=== PATIENT | female | born 1955 | race Asian ===

== ENCOUNTER 2024-07-29 11:55 | Emergency (ER) | payer OTHER ==
[~2024-07-29] VITALS: Ht 152.4 cm; Wt 83.9 kg
[2024-07-29] MEDS ORDERED: HUMULIN N100 UNIT/2 (12:08)
[2024-07-29] MEDS ORDERED: GLIPIZIDE XL2.5 MG (12:09)
[2024-07-29] MEDS ORDERED: LASIX20 MG (12:09)
[2024-07-29] MEDS ORDERED: NIFEDIPINE ER30 M1 (12:10)
[2024-07-29] MEDS ORDERED: ZESTRIL20 MG (12:10)
[2024-07-29] MEDS ORDERED: 0.9 % SODIUM CHLORIDE 1,000 ML IV ONE (12:45)
[2024-07-29] MEDS ORDERED: INSULIN REGULAR, HUMAN 1,000 UNIT/10 ML UNITS IV ONE ×2 (12:45→14:45)
[2024-07-29 12:56] LABS: BASO % 0.3 % (0.1-1.2); EOS # 0.01 (0.04-0.54); EOS % 0.1 % (0.7-7.0); HEMATOCRIT 40.1 % (34.1-44.9); HEMOGLOBIN 13.6 g/dL (11.2-15.7); LYMPH # 1.58 (1.18-3.74); LYMPH % 11.8 % (19.3-53.1); MEAN CORPUSCULAR HEMOGLOBIN 29.5 pg (25.6-32.2); NEUT % 84.4 % (34.0-71.1); PLATELET COUNT 440 K/uL (163-369); RED BLOOD COUNT 4.61 M/uL (3.93-5.22); RED CELL DISTRIBUTION WIDTH 14.5 % (11.6-14.4)
[2024-07-29 13:20] LABS: ALBUMIN 3.5 gm/dL (3.4-5.0); BILIRUBIN TOTAL 0.4 mg/dL (0.3-1.2); CALCIUM 9.8 mg/dL (8.5-10.1); CREATININE SERUM 0.89 mg/dL (0.55-1.02); GFR 63.07; GLOBULINA 4.5 G/DL (2.4-3.5); POTASSIUM 4.41 mEq/L (3.5-5.1)
[2024-07-29 13:34] LABS: PH,URINE 6.5 (5.0-8.0); URINE APPEARANCE Clear; URINE BILIRRUBIN Negative (NEGATIVE); URINE BLOOD Negative; URINE COLOR Yellow; URINE KETONE Negative (NEGATIVE); URINE LEUKOCYTE Small; URINE NITRATE Negative; URINE PROTEIN Negative (NEGATIVE); URINE UROBILINOGEN 0.2 E.U./dl
[2024-07-29 13:38] LABS: URINE RBC 8.6 uL (0.0-20.8); URINE WBC 20.8 uL (0.0-23.2)
[2024-07-29 13:48] LABS: URINE GLUCOSE 250 MG/DL (NEGATIVE)
[2024-07-29 13:51] LABS: INR 0.96; PARTIAL THROMBOPLASTIN TIME 24.9 SECONDS (22.0-34.0); PROTHROMBIN TIME 10.5 SECONDS (9.0-11.5)
[2024-07-29] MEDS ORDERED: CEFTRIAXONE SODIUM 1,000 MG VIAL ONE (13:59)
[2024-07-29] MEDS ORDERED: CEFTRIAXONE SODIUM 1,000 MG VIAL IV ONE (14:00)
== END 2024-07-29 17:09 | disposition home or self-care (01) ==
LOC: ER 12:06
PROVIDERS: General Practice
DX: R73.9 Hyperglycemia, unspecified (principal); Z79.4 Long term (current) use of insulin